=== PATIENT | female | born 1965 | race Two or more races ===

== ENCOUNTER 2017-09-30 14:37 | Observation (INO) | payer MEDICAID ==
[~2017-09-30] VITALS: Ht 154.9 cm; Wt 90.6 kg
[2017-09-30 16:28] LABS: BASOPHILS # (AUTO) 0.04 x10^3/uL (0-0.1); BASOPHILS % (AUTO) 1 % (0-1); EOSINOPHILS # (AUTO) 0.62 x10^3/uL (0-0.4); EOSINOPHILS % (AUTO) 8 % (1-7); LYMPHOCYTES % (AUTO) 12 % (22-44); MD NO; MEAN CORPUSCULAR HEMOGLOBIN 29.1 pg (27.0-34.8); MEAN CORPUSCULAR HGB CONC 32.9 g/dL (32.4-35.8); MEAN CORPUSCULAR VOLUME 88.6 fL (80-100); MEAN PLATELET VOLUME 8.4 fL (7.4-10.4); MONOCYTES # (AUTO) 0.41 x10^3/uL (0.2-0.8); MONOCYTES % (AUTO) 5 % (2-9); NEUTROPHILS # (AUTO) 6.08 x10^3/uL (1.8-6.8); NEUTROPHILS % (AUTO) 75 % (42-75); PLATELET COUNT 294 x10^3/uL (130-400); RED BLOOD COUNT 3.73 x10^6/uL (3.82-5.3); RED CELL DISTRIBUTION WIDTH 14.9 % (9.6-15.2)
[2017-09-30] MEDS ORDERED: SODIUM CHLORIDE 0.9% 1,000ML IVBOLUS ONE ×2 (16:30)
[2017-09-30] MEDS ORDERED: SODIUM CHLORIDE FLUSH 10ML SYR IVF ONE ×2 (16:30)
[2017-09-30] MEDS ORDERED: ONDANSETRON 2MG/ML, 2ML IVPush ONE ×2 (16:30)
[2017-09-30] MEDS ORDERED: HYDROmorphone 1 MG/ML, 1ML IVPush PRN (16:30)
[2017-09-30 16:38] LABS: ALANINE AMINOTRANSFERASE 79 U/L (12-78); ALBUMIN 3.5 g/dL (3.4-5.0); ANION GAP 8 mmol/L (5-15); CHLORIDE 97 mmol/L (98-107); CREATININE 5.18 mg/dL (0.55-1.02)
[2017-09-30 16:41] LABS: ALKALINE PHOSPHATASE 277 U/L (45-117); BILIRUBIN,TOTAL 0.3 mg/dL (0.2-1.0)
[2017-09-30] MEDS ORDERED: ONDANSETRON 2MG/ML, 2ML ONE ×2 (17:01→17:56)
[2017-09-30] MEDS ORDERED: HYDROmorphone 2 MG/ML, 1ML ONE (17:01)
[2017-09-30 18:14] LABS: MICROSCOPIC INDICATED
[2017-09-30 18:24] LABS: CULTURE INDICATED? YES
[2017-09-30] MEDS ORDERED: PROMETHAZINE 25 MG/ML, 1ML ONE (18:37)
[2017-09-30] MEDS ORDERED: OMNIPAQUE 350 MG/ML, 100ML BOTTLE ONE (18:39)
[2017-09-30] MEDS ORDERED: PROMETHAZINE 25 MG/ML, 1ML IM ONE (19:00)
[2017-09-30] MEDS ORDERED: ASPI-621 PO (19:26)
[2017-09-30] MEDS ORDERED: ATOR40TA78 PO (19:26)
[2017-09-30] MEDS ORDERED: CITA40TA5 PO (19:27)
[2017-09-30] MEDS ORDERED: CALC667C PO (19:27)
[2017-09-30] MEDS ORDERED: FERR324T13 PO (19:28)
[2017-09-30] MEDS ORDERED: FURO80TA3 PO (19:28)
[2017-09-30] MEDS ORDERED: FAMO20TA7 PO (19:28)
[2017-09-30] MEDS ORDERED: GABA300C10 PO (19:29)
[2017-09-30] MEDS ORDERED: INSU100C SQ-INSULIN (19:30)
[2017-09-30] MEDS ORDERED: HYDR-3237 PO (19:30)
[2017-09-30] MEDS ORDERED: LISI-167 PO (19:31)
[2017-09-30] MEDS ORDERED: ZOLPIDEM 5MG TABLET PO PRN (20:30)
[2017-09-30] MEDS ORDERED: POLYETHYLENE GLYCOL 17 GM PACKET PO PRN (20:30)
[2017-09-30] MEDS ORDERED: PROMETHAZINE 25 MG/ML, 1ML IM PRN (20:30)
[2017-09-30] MEDS ORDERED: BISACODYL 10 MG SUPP PR PRN (20:30)
[2017-09-30] MEDS ORDERED: LABETALOL 5MG/ML, 20ML IVPush PRN (20:30)
[2017-09-30] MEDS ORDERED: GUAIFENESIN/DM 200-20MG, 10ML UDC PO PRN (20:30)
[2017-09-30] MEDS ORDERED: ONDANSETRON 2MG/ML, 2ML IVPush PRN (20:30)
[2017-09-30] MEDS ORDERED: ONDANSETRON ODT 4 MG PO PRN (20:30)
[2017-09-30] MEDS ORDERED: ACETAMINOPHEN 325 MG TABLET PO PRN (20:30)
[2017-09-30 20:57] VITALS: BP 168/95
[2017-09-30] MEDS: CALCIUM ACETATE 667 MG CAPSULE PO SCH (21:00)
[2017-09-30] MEDS: FAMOTIDINE 20 MG TABLET PO SCH (21:00)
[2017-09-30] MEDS ORDERED: ATORVASTATIN 40 MG TABLET PO SCH (21:00)
[2017-09-30] MEDS: GABAPENTIN 300 MG CAPSULE PO SCH (22:28)
[2017-09-30] MEDS: HEPARIN 5,000 UNITS/ML, 1ML SQ SCH (22:28)
[2017-09-30] MEDS ORDERED: [UNRECOGNIZED DRUG - OTHER] SQ (22:37)
[2017-09-30] MEDS ORDERED: VICTOSA SQ (22:40)
[2017-09-30] MEDS ORDERED: DEXTROSE 50%, 50ML SYRINGE IVPush PRN (23:00)
[2017-09-30] MEDS ORDERED: DEXTROSE 4 GM TAB.CHEW PO PRN (23:00)
[2017-09-30] MEDS ORDERED: GLUCAGON 1 MG IM PRN (23:00)
[2017-09-30] MEDS: INSULIN LISPRO 100 UNITS/ML, PEN SQ-INSULIN SCH (23:25)
[2017-10-01 00:45] VITALS: BP 164/80
[2017-10-01] MEDS: HEPARIN 5,000 UNITS/ML, 1ML SQ SCH ×2 (05:25→13:30)
[2017-10-01 05:48] LABS: CHLORIDE 95 mmol/L (98-107)
[2017-10-01 06:09] LABS: BASOPHILS # (AUTO) 0.06 x10^3/uL (0-0.1); BASOPHILS % (AUTO) 1 % (0-1); EOSINOPHILS % (AUTO) 10 % (1-7); LYMPHOCYTES # (AUTO) 1.39 x10^3/uL (1-3.4); LYMPHOCYTES % (AUTO) 27 % (22-44); MD NO; MEAN CORPUSCULAR HEMOGLOBIN 29.5 pg (27.0-34.8); MEAN CORPUSCULAR HGB CONC 33.4 g/dL (32.4-35.8); MEAN CORPUSCULAR VOLUME 88.4 fL (80-100); MEAN PLATELET VOLUME 8.6 fL (7.4-10.4); MONOCYTES # (AUTO) 0.38 x10^3/uL (0.2-0.8); MONOCYTES % (AUTO) 7 % (2-9); NEUTROPHILS # (AUTO) 2.85 x10^3/uL (1.8-6.8); NEUTROPHILS % (AUTO) 55 % (42-75); PLATELET COUNT 235 x10^3/uL (130-400); RED BLOOD COUNT 3.33 x10^6/uL (3.82-5.3)
[2017-10-01 06:10] LABS: ALANINE AMINOTRANSFERASE 57 U/L (12-78); ALKALINE PHOSPHATASE 233 U/L (45-117); ANION GAP 13 mmol/L (5-15); BILIRUBIN,TOTAL 0.4 mg/dL (0.2-1.0); CALCIUM 8.6 mg/dL (8.5-10.1); CREATININE 6.14 mg/dL (0.55-1.02); TOTAL PROTEIN 6.2 g/dL (6.4-8.2)
[2017-10-01 07:14] VITALS: BP 131/70
[2017-10-01] MEDS: GABAPENTIN 300 MG CAPSULE PO SCH ×2 (08:40→16:00)
[2017-10-01] MEDS: INSULIN LISPRO 100 UNITS/ML, PEN SQ-INSULIN SCH ×3 (08:40→16:00)
[2017-10-01] MEDS: CALCIUM ACETATE 667 MG CAPSULE PO SCH ×2 (08:41→16:00)
[2017-10-01] MEDS: FAMOTIDINE 20 MG TABLET PO SCH (08:42)
[2017-10-01] MEDS ORDERED: FERROUS SULFATE 325 MG TABLET PO SCH (09:00)
[2017-10-01] MEDS ORDERED: CITALOPRAM 20 MG TABLET PO SCH (09:00)
[2017-10-01] MEDS ORDERED: SENNA/DOCUSATE TABLET PO SCH (09:00)
[2017-10-01] MEDS ORDERED: LISINOPRIL 10 MG TABLET PO SCH (09:00)
[2017-10-01] MEDS ORDERED: ASPIRIN 81 MG TABLET EC PO SCH (09:00)
[2017-10-01] MEDS ORDERED: FUROSEMIDE 80 MG TABLET PO SCH ×2 (09:00)
[2017-10-01 12:28] VITALS: BP 108/62
[2017-10-01] MEDS ORDERED: CYCL5TAB PO (14:23)
[2017-10-01] MEDS ORDERED: SODIUM CHLORIDE FLUSH 10ML SYR IVF SCH (21:00)
[2017-10-02] MEDS ORDERED: FAMOTIDINE 20 MG TABLET PO SCH (09:00)
== END 2017-10-01 16:06 | disposition home or self-care (01) ==
LOC: ED 17:28 → MERGE 17:28 → EDIP 19:37 → INTOOBSV 19:37 → UNDOADMOB 19:37 → EDIP 20:21 → 3NE 20:52 → EDIP 20:52 → 3NE 20:52 → UNDODISOB 10-01 16:06
PROVIDERS: ADMIT Family Medicine; ATTEND Family Medicine
DX: R10.9 Unspecified abdominal pain (principal); R11.2 Nausea with vomiting, unspecified; E10.22 Type 1 diabetes mellitus with diabetic chronic kidney disease; E10.43 Type 1 diabetes mellitus with diabetic autonomic (poly)neuropathy; I13.2 Hypertensive heart and chronic kidney disease with heart failure and with stage 5 chronic kidney disease, or end stage renal disease; I50.9 Heart failure, unspecified; J45.909 Unspecified asthma, uncomplicated; K21.9 Gastro-esophageal reflux disease without esophagitis; N18.6 End stage renal disease; Z99.2 Dependence on renal dialysis; Z90.49 Acquired absence of other specified parts of digestive tract
CPT/HCPCS: 36415; 74177; 80053; 81001; 82962; 83605; 83690; 83735; 84100; 85025; 87086; 96372; 96374; 96375; 96376; 97165; 99285; G0378; G8978; G8979; G8980; J1170; J1644; J1815; J2405; J2550; Q9967

== ENCOUNTER 2017-10-05 16:25 | Emergency (ER) | payer MEDICAID ==
[~2017-10-05] VITALS: Ht 157.5 cm; Wt 91.0 kg
[~2017-10-05 16:25] MED LIST: ASPI-621 PO; ATOR40TA78 PO; CALC667C PO; CITA40TA5 PO; CYCL5TAB PO; FAMO20TA7 PO; FERR324T13 PO; FURO80TA3 PO; GABA300C10 PO; HYDR-3237 PO; INSU100C SQ-INSULIN; LISI-167 PO; VICTOSA SQ; [UNRECOGNIZED DRUG - OTHER] SQ
[2017-10-05] MEDS ORDERED: HYDROmorphone 2 MG/ML, 1ML ONE (16:43)
[2017-10-05] MEDS ORDERED: ONDANSETRON 2MG/ML, 2ML ONE ×2 (16:43→18:21)
[2017-10-05] MEDS: HYDROmorphone 1 MG/ML, 1ML IVPush PRN ×2 (16:59→18:23)
[2017-10-05] MEDS ORDERED: ONDANSETRON 2MG/ML, 2ML IVPush ONE ×2 (17:00→18:30)
[2017-10-05] MEDS ORDERED: SODIUM CHLORIDE FLUSH 10ML SYR IVF ONE (17:00)
[2017-10-05] MEDS ORDERED: SODIUM CHLORIDE 0.9% 1,000ML IVBOLUS ONE (17:00)
[2017-10-05 17:21] LABS: ALANINE AMINOTRANSFERASE 61 U/L (12-78); ALBUMIN 3.6 g/dL (3.4-5.0); ANION GAP 10 mmol/L (5-15); CALCIUM 9.4 mg/dL (8.5-10.1); CHLORIDE 95 mmol/L (98-107); CREATININE 7.93 mg/dL (0.55-1.02)
[2017-10-05 17:23] LABS: ALKALINE PHOSPHATASE 281 U/L (45-117); BILIRUBIN,TOTAL 0.4 mg/dL (0.2-1.0); TOTAL PROTEIN 7.5 g/dL (6.4-8.2)
[2017-10-05 17:27] LABS: BASOPHILS # (AUTO) 0.07 x10^3/uL (0-0.1); BASOPHILS % (AUTO) 1 % (0-1); EOSINOPHILS # (AUTO) 0.45 x10^3/uL (0-0.4); EOSINOPHILS % (AUTO) 9 % (1-7); LYMPHOCYTES # (AUTO) 1.46 x10^3/uL (1-3.4); LYMPHOCYTES % (AUTO) 28 % (22-44); MD NO; MEAN CORPUSCULAR HEMOGLOBIN 29.6 pg (27.0-34.8); MEAN CORPUSCULAR HGB CONC 33.5 g/dL (32.4-35.8); MEAN CORPUSCULAR VOLUME 88.6 fL (80-100); MEAN PLATELET VOLUME 8.8 fL (7.4-10.4); MONOCYTES # (AUTO) 0.33 x10^3/uL (0.2-0.8); MONOCYTES % (AUTO) 6 % (2-9); NEUTROPHILS # (AUTO) 2.99 x10^3/uL (1.8-6.8); NEUTROPHILS % (AUTO) 56 % (42-75); PLATELET COUNT 361 x10^3/uL (130-400); RED CELL DISTRIBUTION WIDTH 14.8 % (9.6-15.2)
[2017-10-05 18:22] LABS: MICROSCOPIC INDICATED
[2017-10-05 18:26] VITALS: BP 184/76
[2017-10-05 19:01] LABS: CULTURE INDICATED? NO
== END 2017-10-05 20:10 | disposition home or self-care (01) ==
LOC: ED 17:44
DX: R10.31 Right lower quadrant pain (principal); G89.29 Other chronic pain; R11.2 Nausea with vomiting, unspecified; N18.3 Chronic kidney disease, stage 3 (moderate); I12.9 Hypertensive chronic kidney disease with stage 1 through stage 4 chronic kidney disease, or unspecified chronic kidney disease; E11.22 Type 2 diabetes mellitus with diabetic chronic kidney disease; E11.43 Type 2 diabetes mellitus with diabetic autonomic (poly)neuropathy; Z90.49 Acquired absence of other specified parts of digestive tract; Z99.2 Dependence on renal dialysis
CPT/HCPCS: 36415; 71046; 74176; 80053; 81001; 83690; 85025; 96374; 96375; 96376; 99285; J1170; J2405

== ENCOUNTER → 2017-12-19 | Outpatient (CLI) | payer OTHER, MEDICAID | END | disposition home or self-care (01) | LOC: RAD 14:25 | PROVIDERS: ATTEND Neurological Surgery | DX: M54.2 Cervicalgia (principal) | CPT/HCPCS: 72125 ==

== ENCOUNTER 2019-10-01 11:01 | Emergency (ER) | payer OTHER, MEDICAID ==
[~2019-10-01] VITALS: Ht 154.9 cm; Wt 74.8 kg
[~2019-10-01 11:01] MED LIST changes: -ASPI-621 PO; +ASPI81TA45 PO; +CITA40TA12 PO; +INSU100I32 SQ; +LACT10SO38 PO; +LIRA0.6P SQ; +TERB250T3 PO
--- NOTE | 2019-10-01 11:18 | NUR ---
PT BIB EMS FROM HOME. PT S/P RIGHT KIDNEY TRANSPLANT AT [facility] ON 08/23/2019. PT HAS HAD DIARRHEA SINCE THE TRANSPLANT BUT TODAY SHE DEVELOPED EPIGASTRIC PAIN AND MARCEAL LOWER ABD PAIN RATES IT A 05/16. PIV EST ONLINE MARKETING STRATEGIST AND PT WAS GIVEN 100MCG FENTANYL AND 4MG OF ZOFRAN ONLINE MARKETING STRATEGIST. DR CARTER AND DR DOUGLAS AT BEDSIDE. PT DENIES FLANK PAIN. PT ASSESSMENT REVIEWED. POC DISCUSSED. PT ON BP AND SP02 MONITORING AND CALL LIGHT W/I REACH.
[2019-10-01] MEDS ORDERED: HYDROmorphone 2 MG/ML, 1ML IVPush PRN (11:30)
[2019-10-01] MEDS ORDERED: PANTOPRAZOLE 40 MG IV IV ONE (11:30)
[2019-10-01] MEDS ORDERED: PANTOPRAZOLE 40 MG IV ONE (11:49)
[2019-10-01] MEDS ORDERED: HYDROmorphone 1 MG/ML, 1ML INJ ONE (11:49)
[2019-10-01 12:03] LABS: BASOPHILS # (AUTO) 0.02 x10^3/uL (0-0.1); BASOPHILS % (AUTO) 0 % (0-1); EOSINOPHILS # (AUTO) 0.05 x10^3/uL (0-0.4); EOSINOPHILS % (AUTO) 1 % (1-7); LYMPHOCYTES # (AUTO) 0.35 x10^3/uL (1-3.4); LYMPHOCYTES % (AUTO) 6 % (22-44); MD NO; MEAN PLATELET VOLUME 7.7 fL (7.4-10.4); MONOCYTES # (AUTO) 0.26 x10^3/uL (0.2-0.8); MONOCYTES % (AUTO) 5 % (2-9); NEUTROPHILS # (AUTO) 5.15 x10^3/uL (1.8-6.8); NEUTROPHILS % (AUTO) 88 % (42-75); PLATELET COUNT 238 x10^3/uL (130-400); RED BLOOD COUNT 2.89 x10^6/uL (3.82-5.3); RED CELL DISTRIBUTION WIDTH 14.6 % (9.6-15.2)
--- NOTE | 2019-10-01 12:05 | NUR ---
PT MED NOTED FOR PAIN. STRAIGHT CATH FOR URINE COLLECTED AND DELIVERED TO LAB. PT TOLLERATED WELL. VSS, CALL LIGHT W/I REACH. WARM BLANKET PROVIDED.
[2019-10-01 12:07] VITALS: BP 156/61
[2019-10-01 12:15] LABS: ALANINE AMINOTRANSFERASE 25 U/L (12-78); ANION GAP 7 mmol/L (5-15); CALCIUM 9.1 mg/dL (8.5-10.1); CHLORIDE 110 mmol/L (98-107)
[2019-10-01 12:17] LABS: ALKALINE PHOSPHATASE 181 U/L (45-117); BILIRUBIN,TOTAL 0.4 mg/dL (0.2-1.0); TOTAL PROTEIN 5.4 g/dL (6.4-8.2)
[2019-10-01 12:30] LABS: MICROSCOPIC AUTO
[2019-10-01 12:41] LABS: CULTURE INDICATED? NO
[2019-10-01] MEDS ORDERED: TACR1CAP4 PO (12:44)
[2019-10-01] MEDS ORDERED: PRED5TAB PO (12:44)
[2019-10-01] MEDS ORDERED: FURO-93 PO (12:44)
[2019-10-01] MEDS ORDERED: METO25TA35 PO (12:44)
[2019-10-01] MEDS ORDERED: AMLO10TA8 PO (12:44)
[2019-10-01] MEDS ORDERED: PANT40TA3 PO (12:44)
[2019-10-01] MEDS ORDERED: MYCO200S PO (12:44)
--- NOTE | 2019-10-01 12:48 | NUR ---
Assumed care from Maia CONWAY, SBAR report recieved.
--- NOTE | 2019-10-01 14:09 | NUR ---
TASK RN: Patient/Caregiver given discharge instructions and they have confirmed that they understand the instructions. Patient ambulatory with steady gait.
== END 2019-10-01 14:11 | disposition home or self-care (01) ==
LOC: ED 14:05
DX: R10.13 Epigastric pain (principal); R19.7 Diarrhea, unspecified; R11.0 Nausea; Z90.49 Acquired absence of other specified parts of digestive tract; Z90.710 Acquired absence of both cervix and uterus
CPT/HCPCS: 36415; 80053; 80197; 81001; 83690; 85025; 96374; 96375; 99284; C9113; J1170

== ENCOUNTER 2019-10-02 12:47 | Emergency (ER) | payer OTHER, MEDICAID ==
[~2019-10-02] VITALS: Ht 154.9 cm; Wt 80.0 kg
[~2019-10-02 12:47] MED LIST changes: +AMLO10TA8 PO; +FURO-93 PO; +METO25TA35 PO; +MYCO200S PO; +PANT40TA3 PO; +PRED5TAB PO; +TACR1CAP4 PO
[2019-10-02 13:45] LABS: ALBUMIN 3.4 g/dL (3.4-5.0); ANION GAP 8 mmol/L (5-15); CALCIUM 9.5 mg/dL (8.5-10.1); CHLORIDE 106 mmol/L (98-107)
[2019-10-02 13:45] LABS: MICROSCOPIC AUTO
[2019-10-02 13:48] LABS: ALANINE AMINOTRANSFERASE 27 U/L (12-78); ALKALINE PHOSPHATASE 202 U/L (45-117); BILIRUBIN,TOTAL 0.5 mg/dL (0.2-1.0); CREATININE 1.35 mg/dL (0.55-1.02)
[2019-10-02 13:49] LABS: BASOPHILS # (AUTO) 0.03 x10^3/uL (0-0.1); BASOPHILS % (AUTO) 1 % (0-1); EOSINOPHILS # (AUTO) 0.03 x10^3/uL (0-0.4); EOSINOPHILS % (AUTO) 1 % (1-7); LYMPHOCYTES # (AUTO) 0.34 x10^3/uL (1-3.4); LYMPHOCYTES % (AUTO) 6 % (22-44); MD NO; MEAN CORPUSCULAR HEMOGLOBIN 29.3 pg (27.0-34.8); MEAN CORPUSCULAR HGB CONC 32.2 g/dL (32.4-35.8); MEAN PLATELET VOLUME 7.9 fL (7.4-10.4); MONOCYTES # (AUTO) 0.25 x10^3/uL (0.2-0.8); MONOCYTES % (AUTO) 4 % (2-9); NEUTROPHILS # (AUTO) 5.33 x10^3/uL (1.8-6.8); NEUTROPHILS % (AUTO) 89 % (42-75); PLATELET COUNT 256 x10^3/uL (130-400); RED BLOOD COUNT 3.17 x10^6/uL (3.82-5.3); RED CELL DISTRIBUTION WIDTH 14.4 % (9.6-15.2)
[2019-10-02 14:07] LABS: CULTURE INDICATED? NO
--- NOTE | 2019-10-02 15:21 | NUR ---
TO ROOM FROM LOBBY. NAD.
[2019-10-02] MEDS ORDERED: ONDANSETRON ODT 4 MG PO ONE (16:00)
[2019-10-02] MEDS ORDERED: ZIPRASIDONE 20 MG INJ IM ONE ×3 (16:15→16:30)
[2019-10-02] MEDS ORDERED: ONDANSETRON ODT 4 MG ONE (16:15)
[2019-10-02] MEDS ORDERED: HYDROmorphone 1 MG/ML, 1ML INJ ONE (16:16)
[2019-10-02] MEDS ORDERED: HYDROmorphone 1 MG/ML, 1ML INJ IM ONE (16:30)
--- NOTE | 2019-10-02 16:31 | NUR ---
PT MEDICATED PER ERP ORDER FOR PAIN TO LOW ABD RATED 10/10. BP CUFF, PULSE OX IN PLACE. VS UPDATED IN COMPUTER.
[2019-10-02 17:15] VITALS: BP 166/59
--- NOTE | 2019-10-02 17:18 | NUR ---
PT STATES PAIN DOWN FROM 10/10 TO 8/10 BUT "DO NOT WANT ANY OTHER SHOTS". VSS/UPDATED IN COMPUTER. PT FOR RECHECK. ERP NOTIFIED OF PAIN STATUS FOLLOWING MEDICATION.
[2019-10-02] MEDS ORDERED: HYDROcodone/APAP 10/325 MG TABLET PO ONE (17:30)
[2019-10-02] MEDS ORDERED: HYDROcodone/APAP 10/325 MG TABLET ONE (17:47)
== END 2019-10-02 17:58 | disposition home or self-care (01) ==
LOC: ED 13:47
DX: R10.30 Lower abdominal pain, unspecified (principal); R11.2 Nausea with vomiting, unspecified; I10 Essential (primary) hypertension; E11.9 Type 2 diabetes mellitus without complications; Z90.89 Acquired absence of other organs; Z90.49 Acquired absence of other specified parts of digestive tract
CPT/HCPCS: 36415; 80053; 81001; 85025; 96372; 99284; J1170; J3486; Q0162

== ENCOUNTER 2021-02-23 16:10 | Emergency (ER) | payer OTHER, MEDICAID ==
[~2021-02-23] VITALS: Ht 154.9 cm; Wt 83.0 kg
[~2021-02-23 16:10] MED LIST changes: +AMLO-211 PO; -AMLO10TA8 PO; -TACR1CAP4 PO; +TACR1CAP5 PO
[2021-02-23 16:53] LABS: MICROSCOPIC INDICATED
--- NOTE | 2021-02-23 16:58 | NUR ---
pig caster: Pt to room from lobby at this time.
--- NOTE | 2021-02-23 17:14 | NUR ---
PT CAME INTO ED TODAY DUE TO ABDOMINAL PAIN AND DIARRHEA [id number]. STATES IT HAS BEEN ONGOING AND SHE WAS SEEN AT [facility] BUT "THEY DIDNT DO ANYTHING". PT STATES SHE FEELS "WEAK AND AM SUPER DEHYDRATED." PT CHANGED INTO GOWN, RESTING ON GURNEY, BED IN [facility], RAILS ENGAGED, CALL LIGHT ON LAP, PROVIDED WARM BLANKETS FOR COMFORT, WCTM.
[2021-02-23] MEDS ORDERED: HYDROcodone/APAP 5/325 TABLET PO ONE (18:00)
[2021-02-23 18:37] LABS: BASOPHILS % (AUTO) 1 % (0-1); EOSINOPHILS % (AUTO) 2 % (1-7); LYMPHOCYTES % (AUTO) 20 % (22-44); MEAN CORPUSCULAR HEMOGLOBIN 29.1 pg (27.0-34.8); MEAN CORPUSCULAR HGB CONC 33.2 g/dL (32.4-35.8); MONOCYTES % (AUTO) 9 % (2-9); NEUTROPHILS % (AUTO) 68 % (42-75); PLATELET COUNT 204 x10^3/uL (130-400); RED BLOOD COUNT 4.15 x10^6/uL (3.82-5.3); RED CELL DISTRIBUTION WIDTH 13.7 % (9.6-15.2)
[2021-02-23 18:39] LABS: ALANINE AMINOTRANSFERASE 29 U/L (12-78); ALBUMIN 3.7 g/dL (3.4-5.0); ANION GAP 7 mmol/L (5-15); CALCIUM 9.4 mg/dL (8.5-10.1); CHLORIDE 108 mmol/L (98-107); CREATININE 1.85 mg/dL (0.55-1.02)
[2021-02-23 18:42] LABS: ALKALINE PHOSPHATASE 151 U/L (45-117); BILIRUBIN,TOTAL 0.4 mg/dL (0.2-1.0); TOTAL PROTEIN 6.9 g/dL (6.4-8.2)
[2021-02-23 18:46] LABS: CLOSTRIDIUM DIFFICILE ANTIGEN NEGATIVE; CLOSTRIDIUM DIFFICILE TOXIN NEGATIVE (Negative)
[2021-02-23] MEDS ORDERED: ACETAMINOPHEN 500 MG TABLET ONE (19:05)
[2021-02-23 19:07] VITALS: BP 133/65
--- NOTE | 2021-02-23 19:21 | NUR ---
Patient given discharge instructions and they have confirmed that they understand the instructions. Patient ambulatory with steady gait. NAD, all questions answered appropriately, denies additional needs at this time. No personal belongings left in room after discharge.
[2021-02-23] MEDS ORDERED: ACETAMINOPHEN 500 MG TABLET PO ONE (19:30)
== END 2021-02-23 19:22 | disposition home or self-care (01) ==
LOC: ED 17:38
DX: R19.7 Diarrhea, unspecified (principal); R10.84 Generalized abdominal pain; R10.30 Lower abdominal pain, unspecified; I10 Essential (primary) hypertension; E11.9 Type 2 diabetes mellitus without complications; Z90.89 Acquired absence of other organs; Z90.49 Acquired absence of other specified parts of digestive tract
CPT/HCPCS: 36415; 74176; 80053; 81001; 83690; 85025; 87046; 87086; 87324; 87427; 89055; 99284

== ENCOUNTER → 2021-03-12 | Outpatient (CLI) | payer OTHER, MEDICAID ==
[~2021-03-12] MED LIST changes: +ATOR20TA37 PO; +CARV6.252 PO; +CINA30TA2 PO; +DEXL60CA2 PO; +DICY10CA3 PO; +DULA4.5P INJ; +ERGO500017 PO; +HYDR12.517 PO; +INSU100V8 SQ; +MYCO180T3 PO; +PATI8.4P PO; +PREG25CA PO; +SODI650T PO; +TAMS-11 PO; +TIZA4CAP PO
== END | disposition home or self-care (01) ==
LOC: STAR 13:09
PROVIDERS: ATTEND Internal Medicine
DX: Z01.818 Encounter for other preprocedural examination (principal); K31.84 Gastroparesis
CPT/HCPCS: 93005

== ENCOUNTER 2021-03-16 05:28 | Day surgery (SDC) | payer OTHER, MEDICAID ==
[~2021-03-16] VITALS: Ht 154.9 cm; Wt 83.6 kg
[2021-03-16] MEDS ORDERED: CHLORHEXIDINE 15 ML UDC PO ONE (06:30)
[2021-03-16] MEDS ORDERED: LACTATED RINGERS 1,000 ML IV SCH (06:30)
[2021-03-16 07:11] VITALS: BP 156/81
[2021-03-16] MEDS ORDERED: ONABOTULINUMTOXINA 100 UNITS ONE (07:15)
[2021-03-16] MEDS ORDERED: PROPOFOL 50 ML ONE ×2 (07:28→07:29)
[2021-03-16] MEDS ORDERED: FENTANYL PF 100 MCG/2ML ONE ×3 (08:08→09:03)
[2021-03-16] MEDS ORDERED: ACETAMINOPHEN 325 MG TABLET PO PRN (08:30)
[2021-03-16] MEDS ORDERED: ONDANSETRON 2MG/ML, 2ML IVPush PRN (08:30)
[2021-03-16] MEDS: FENTANYL PF 100 MCG/2ML IV PRN ×5 (08:38→09:05)
== END 2021-03-16 10:05 | disposition home or self-care (01) ==
LOC: OUT 05:28
PROVIDERS: ATTEND Internal Medicine
DX: E11.43 Type 2 diabetes mellitus with diabetic autonomic (poly)neuropathy (principal); K31.84 Gastroparesis; I10 Essential (primary) hypertension; J45.909 Unspecified asthma, uncomplicated; Z88.2 Allergy status to sulfonamides; Z88.5 Allergy status to narcotic agent; Z88.8 Allergy status to other drugs, medicaments and biological substances
CPT/HCPCS: 43236; 82962; J0585; J2704; J3010